=== PATIENT | female | born 1990 | race Two or more races ===

== ENCOUNTER 2025-04-19 11:10 | Emergency (ER) | payer OTHER ==
[~2025-04-19] VITALS: Ht 162.6 cm; Wt 65.8 kg
[2025-04-19] MEDS ORDERED: ACETAMINOPHEN 500 MG GEL..CAP PO ONE (12:15)
[2025-04-19 13:40] LABS: URINE APPEARANCE Clear; URINE BILIRRUBIN Negative (NEGATIVE); URINE BLOOD Moderate; URINE COLOR Yellow; URINE GLUCOSE Negative (NEGATIVE); URINE KETONE Negative (NEGATIVE); URINE LEUKOCYTE Negative; URINE NITRATE Negative; URINE PROTEIN Negative (NEGATIVE); URINE UROBILINOGEN 0.2 E.U./dl
[2025-04-19 13:44] LABS: URINE BACTERIA 8.3 uL (0.0-1933); URINE RBC 72.8 uL (0.0-20.8)
[2025-04-19 14:02] LABS: URINE CAST 0.00 uL (0.0-1.40); URINE EPITHELIAL CELLS 1.2 uL (0.0-38.8); URINE WBC 0.6 uL (0.0-23.2)
== END 2025-04-19 15:25 | disposition home or self-care (01) ==
LOC: ER 11:27
PROVIDERS: General Practice
DX: N94.6 Dysmenorrhea, unspecified (principal); R10.2 Pelvic and perineal pain